=== PATIENT | female | born 1950 | race Caucasian/White ===

== ENCOUNTER 2020-01-21 09:56 | Outpatient (CLI) | payer OTHER ==
[~2020-01-21] VITALS: Ht 162.6 cm; Wt 61.2 kg
[~2020-01-21 09:56] MED LIST: ENALAPRIL MALE2.5 MG PO; SIMVASTATIN10 MG PO
== END 2020-01-21 19:26 | disposition home or self-care (01) ==
LOC: OFIC 805 09:56
PROVIDERS: ATTEND Otolaryngology
DX: H93.11 Tinnitus, right ear (principal); R42 Dizziness and giddiness; H91.8X1 Other specified hearing loss, right ear

== ENCOUNTER → 2020-03-11 | Outpatient (CLI) | payer OTHER | END | disposition home or self-care (01) | LOC: OFIC 805 02-19 09:15 | PROVIDERS: ATTEND Otolaryngology | DX: R42 Dizziness and giddiness (principal) ==

== ENCOUNTER 2020-07-08 09:17 | Outpatient (CLI) | payer OTHER | END 2020-07-08 16:24 | disposition home or self-care (01) | LOC: OFIC 805 09:17 | PROVIDERS: ATTEND Otolaryngology | DX: R42 Dizziness and giddiness (principal); H91.8X1 Other specified hearing loss, right ear; H93.11 Tinnitus, right ear ==

== ENCOUNTER 2020-10-24 11:08 | Outpatient (CLI) | payer OTHER | END 2020-10-24 11:18 | disposition home or self-care (01) | LOC: OFIC 805 11:08 | PROVIDERS: ATTEND Otolaryngology | DX: R42 Dizziness and giddiness (principal); H91.8X1 Other specified hearing loss, right ear ==

== ENCOUNTER 2022-12-20 07:45 | Outpatient (CLI) | payer OTHER | END 2022-12-20 07:52 | disposition home or self-care (01) | LOC: RX STUDY 07:45 | PROVIDERS: ATTEND Internal Medicine Gastroenterology | DX: R13.0 Aphagia (principal) ==